=== PATIENT | female | born 1990 | race Two or more races ===

== ENCOUNTER 2016-10-13 17:17 | Emergency (ER) | payer SELFPAY ==
[~2016-10-13] VITALS: Ht 160 cm; Wt 55.0 kg
[2016-10-13] MEDS ORDERED: SODIUM CHLORIDE 0.9% 1,000 ML IV ONE ×3 (17:35→20:16)
[2016-10-13] MEDS ORDERED: OLANZAPINE 10 MG/VIAL IM STA (17:35)
[2016-10-13] MEDS ORDERED: LORAZEPAM 2MG/ML CPJ IV STA (17:35)
[2016-10-13] MEDS ORDERED: OLANZAPINE 10 MG/VIAL IM ONE (17:42)
[2016-10-13] MEDS ORDERED: LORAZEPAM 2MG/ML CPJ ONE (17:43)
[2016-10-13 17:52] LABS: CLARITY URINE CLEAR (CLEAR); COLOR URINE YELLOW (YELLOW); GLUCOSE URINE NEGATIVE (NEGATIVE); KETONES URINE NEGATIVE (NEGATIVE); LEUKOCYTE ESTERASE URINE NEGATIVE (NEGATIVE); NITRITE URINE NEGATIVE (NEGATIVE); OCCULT BLOOD URINE NEGATIVE (NEGATIVE); PH URINE 5.5 (4.5-8.0); PROTEIN URINE NEGATIVE (NEGATIVE); SPECIFIC GRAVITY URINE 1.009 (1.005-1.030); UROBILINOGEN URINE 0.2 E.U./dL (0.2-1.0)
[2016-10-13 18:14] LABS: BASOPHILS % 1.1 % (0.0-2.0); EOSINOPHILS % 4.8 % (0.0-5.0); HEMATOCRIT. 25.5 % (36.0-48.0); HEMOGLOBIN. 7.7 g/dL (12.0-16.0); LYMPHOCYTES % 33.1 % (20.0-50.0); MEAN CORPUSCULAR HEMOGLOBIN 20.6 pg (28.0-32.0); MEAN CORPUSCULAR HGB CONC 30.2 g/dL (31.0-37.0); MEAN CORPUSCULAR VOLUME 68.2 fL (81.0-99.0); MEAN PLATELET VOLUME 7.2 fl (7.4-10.4); MONOCYTES % 11.5 % (2.0-8.0); NEUTROPHILS % 49.5 % (40.0-76.0); PLATELET 356 x1000/uL (130-400); RED BLOOD CELL COUNT 3.74 mill/uL (4.2-5.4); RED CELL DISTRIBUTION WIDTH 17.5 % (11.6-14.6); WHITE BLOOD COUNT 7.4 x1000/uL (4.5-11.0)
[2016-10-13 18:17] LABS: ADD RBC MORPHOLOGY YES; DIFFERENTIAL COMMENT 1
[2016-10-13 18:22] LABS: INR 1.1; PROTHROMBIN TIME 11.3 sec
[2016-10-13 18:27] LABS: AMMONIA 18 uMol/L (<32); INDEX HEMOLYSI 1 (1-3)
[2016-10-13 18:27] LABS: BG BASE EXCESS -8.5 mmol/L (-2.0-2.0); BG FRACTION INSPIRED OXYGEN 21; BG HCO3 ACT 17.1 mmol/L (22.0-26.0); BG METHEMOGLOBIN 0.2 % (0.0-1.5); BG OXYGEN SATURATION 93.9 % (92.0-98.5); BG OXYHEMOGLOBIN 92.8 % (94.0-97.0); BG PCO2 35.2 mmHg (35.0-45.0); BG PH 7.304 (7.350-7.450); BG PO2 78.3 mmHg (75.0-100.0); BG SAMPLE SITE RIGHT BRACHIAL; BG TOTAL HEMOGLOBIN 8.4 g/dL (12.0-18.0); BG VENT MODE ROOM AIR
[2016-10-13 18:30] LABS: ANISOCYTOSIS 1+; HYPOCHROMASIA 1+; PLATELET ESTIMATE NORMAL
[2016-10-13 18:32] LABS: ALANINE AMINOTRANSFERASE 16 IU/L (13-61); ALBUMIN 3.3 g/dL (3.4-5.0); ANION GAP 20; CALCIUM 7.9 mg/dL (8.5-10.1); CARBON DIOXIDE 16 mEq/L (21-32); CHLORIDE 110 mEq/L (98-107); CREATINE KINASE 184 IU/L (26-192); ETHANOL BLOOD 16 mg/dL; INDEX HEMOLYSI 1 (1-3); INDEX ICTERIC 1 (1-4); INDEX LIPEMIC 1 (1-3); NT PRO B-TYPE NATRIURETIC PEP 18 pg/mL (5-125); OVALOCYTES 1+; TROPONIN I < 0.02 ng/mL (0.00-0.04); UREA NITROGEN BLOOD 10 mg/dL (7-21); eGFR > 60 mL/min (>60)
[2016-10-13 18:33] LABS: LACTIC ACID 6.1 mmol/L (0.4-2.0)
[2016-10-13 18:38] LABS: THYROID STIMULATING HORMONE 0.86 uIU/mL (0.36-3.74)
[2016-10-13 18:42] LABS: HCG SCREEN NEGATIVE
[2016-10-13 18:42] LABS: *BARBITURATES SCREEN URINE NEGATIVE (NEGATIVE); *COCAINE SCREEN URINE NEGATIVE (NEGATIVE); CANNABINOID URINE SCREEN NEGATIVE (NEGATIVE); ECSTASY MDMA SCREEN URINE NEGATIVE (NEGATIVE); METHADONE URINE SCREEN NEGATIVE (NEGATIVE); OPIATES URINE SCREEN NEGATIVE (NEGATIVE); PHENCYCLIDINE URINE SCREEN NEGATIVE (NEGATIVE)
[2016-10-13 18:47] LABS: *AMPHETAMINES SCREEN URINE PRESUMTIVE POSITIVE (NEGATIVE); *BENZODIAZEPINES SCREEN URINE PRESUMTIVE POSITIVE (NEGATIVE)
[2016-10-13] MEDS ORDERED: KCL 20MEQ/100ML PREMIX 100 ML IV ONE (19:00)
[2016-10-13] MEDS ORDERED: LORAZEPAM 2MG/ML CPJ IV ONE (20:30)
[2016-10-13 20:54] LABS: CHLORIDE 116 mEq/L (98-107); INDEX HEMOLYSI 1 (1-3); INDEX ICTERIC 1 (1-4); INDEX LIPEMIC 1 (1-3)
[2016-10-13 21:02] LABS: ANION GAP 13; CALCIUM 7.6 mg/dL (8.5-10.1); CARBON DIOXIDE 22 mEq/L (21-32); CREATINE KINASE 200 IU/L (26-192); UREA NITROGEN BLOOD 9 mg/dL (7-21); eGFR > 60 mL/min (>60)
[2016-10-14] MEDS ORDERED: SODIUM CHLORIDE 0.9% 1,000 ML IV ONE (00:45)
[2016-10-14] MEDS ORDERED: LORAZEPAM 2MG/ML CPJ IV ONE (00:45)
[2016-10-15] MEDS ORDERED: SODIUM CHLORIDE 0.9% 1,000 ML IV ONE (12:40)
[2016-10-15] MEDS ORDERED: ACETAMINOPHEN 325MG TABLET PO ONE (12:45)
[2016-10-15 14:07] VITALS: BP 95/60
== END 2016-10-15 14:43 | disposition home or self-care (01) ==
LOC: ER 17:18
DX: G93.40 Encephalopathy, unspecified (principal); F15.10 Other stimulant abuse, uncomplicated; E87.2 Acidosis; E86.0 Dehydration; D64.9 Anemia, unspecified; R41.82 Altered mental status, unspecified; F10.10 Alcohol abuse, uncomplicated
CPT/HCPCS: 36415; 36600; 51702; 70450; 73502; 73552; 73590; 73630; 80048; 80053; 80305; 81003; 82140; 82375; 82550; 82805; 83605; 83880; 84443; 84484; 84703; 85025; 85610; 93005; 96361; 96372; 96374; 96376; 99285; G0482; J2060; J3480; J3490; J7030; Z7610